=== PATIENT | female | born 1970 | race Two or more races ===

== ENCOUNTER 2021-09-12 14:25 | Emergency (ER) | payer MEDICAID ==
[~2021-09-12] VITALS: Ht 162.6 cm; Wt 86.2 kg
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
--- NOTE | 2021-09-12 14:57 | NUR ---
HIGHWAY PATROL AT BEDSIDE
[2021-09-12] MEDS ORDERED: CYCLOBENZAPRINE 10 MG TABLET PO ONE (15:30)
[2021-09-12] MEDS ORDERED: KETOROLAC TROMETHAMINE INJ 30 MG/ML VIAL IM ONE (15:30)
[2021-09-12] MEDS ORDERED: KETOROLAC TROMETHAMINE INJ 30 MG/ML VIAL ONE (15:38)
[2021-09-12] MEDS ORDERED: CYCLOBENZAPRINE 10 MG TABLET ONE (15:39)
--- NOTE | 2021-09-12 15:47 | NUR ---
PT TAKEN FOR CT SCAN
--- NOTE | 2021-09-12 17:11 | NUR ---
Tashia hatch in [facility] - 09/12/21 at 1732 by LANDON BED [id number]
[2021-09-12] MEDS ORDERED: IBUP-1957 PO (17:15)
[2021-09-12] MEDS ORDERED: CYCL5TAB PO (17:15)
--- NOTE | 2021-09-12 17:22 | NUR ---
Patient discharged to home in stable condition. Written and verbal after care instructions given. Patient verbalizes understanding of instruction.
[2021-09-12 17:34] VITALS: BP 125/79
== END 2021-09-12 17:34 | disposition home or self-care (01) ==
LOC: ER 14:30
DX: R51.9 Headache, unspecified (principal); M54.2 Cervicalgia; M54.6 Pain in thoracic spine; Z88.6 Allergy status to analgesic agent; Z79.1 Long term (current) use of non-steroidal anti-inflammatories (NSAID); Z79.899 Other long term (current) drug therapy; V89.2XXA Person injured in unspecified motor-vehicle accident, traffic, initial encounter; Y93.89 Activity, other specified; Y92.89 Other specified places as the place of occurrence of the external cause; Y99.8 Other external cause status
CPT/HCPCS: 70450; 71250; 72125; 74176; 96372; 99284; J1885